=== PATIENT | male | born 1965 | race Caucasian/White ===

== ENCOUNTER 2024-08-15 06:15 | Day surgery (SDC) | payer OTHER, SELFPAY ==
[2024-08-15] VITALS (17 sets, daily range): BP systolic 105–167; BP diastolic 77–117; PULSE 71–99; RESP 14–20; TEMP 36.1–37.3; O2SAT 95–97; BMI 37.6
[2024-08-15] MEDS: LACTATED RINGERS 1000 ML 1,000 ML 100 ML IV ×2 (07:05→08:47)
[2024-08-15] MEDS: SODIUM CHLORIDE 0.9 % (FLUSH) 10 ML SYRINGE IVF (07:05)
[2024-08-15] MEDS: OXYCODONE (CR) 10 MG TAB.ER.12H PO (07:17)
[2024-08-15] MEDS: ACETAMINOPHEN 500 MG TABLET 1000 MG PO (07:17)
--- NOTE | 2024-08-15 07:17 | W.PM.H&PU ---
History & Physical Update History & Physical Update H&P Reviewed and patient assessed: No changes noted
[2024-08-15] MEDS: MIDAZOLAM HCL 1 MG/ML inj IVP (07:20)
[2024-08-15] MEDS: fentaNYL 100 MCG/2 ML inj IVP (07:20)
--- NOTE | 2024-08-15 07:29 | SUR.PREOP ---
TIME?OUT:?716, left knee PT/RN/MDA?VERIFICATION?OF?SURGICAL?SITE,?PROCEDURE,?AND?CONSENT OBTAINED?PRIOR?TO?INVASIVE?PROCEDURE.
[2024-08-15] MEDS: TRANEXAMIC ACID 100 MG/ML INJ 1000 MG IV (07:32)
--- NOTE | 2024-08-15 07:32 | P.NB_ITS ---
Nerve Block Nerve Block Time Seen by Provider: 07:20 Date Seen: 08/15/24 Type of block requested by surgeon for post-operative analgesia: adductor canal Side: left Time out performed: Yes Verification of patient name: Yes Verification of date of : Yes Site marking: site marked Name of person performing procedure: Prashant Continuous monitoring Was continuous monitoring of O2 sat, B/P, diagnostic cardiac sonographer, recorded every 15 minutes?: Yes Procedure Checklist: sterile prep, needles and gloves Ultrasound guided. Images saved: Yes Medications given in 5ml increments after negative aspiration: Marcaine %: 0.25 mL: 15 Needle gauge: 20 Precedex (mcg): 25 Patient tolerated procedure well: Yes Block Charges Block Charge (with Pro Fee): Femoral Nerve Use of Ultrasound Machine for Block: Yes- US Guidance/pain block
--- NOTE | 2024-08-15 07:32 | P.NB_ITS ---
Nerve Block Nerve Block Time Seen by Provider: 07:20 Date Seen: 08/15/24 Type of block requested by surgeon for post-operative analgesia: geniculars Side: left Time out performed: Yes Verification of patient name: Yes Verification of date of : Yes Site marking: site marked Name of person performing procedure: Prashant Continuous monitoring Was continuous monitoring of O2 sat, B/P, monitor car operator, recorded every 15 minutes?: Yes Procedure Checklist: sterile prep, needles and gloves Ultrasound guided. Images saved: Yes Medications given in 5ml increments after negative aspiration: Marcaine %: 0.25 mL: 9 Needle gauge: 25 Patient tolerated procedure well: Yes Block Charges Block Charge (with Pro Fee): Genicular Nerve Block
[2024-08-15] MEDS: CEFAZOLIN 2 GM in 0.9 % SODIUM CHLORIDE Mini-bag 100 ML IVPB (07:40)
--- NOTE | 2024-08-15 09:02 | PM.ORPRC ---
Procedure Note Date of procedure: 08/15/24 Procedure: PREOPERATIVE DIAGNOSIS: 1. Left knee osteoarthritis, primary, severe POSTOPERATIVE DIAGNOSIS: 1. Left knee osteoarthritis, primary, severe PROCEDURE: 1. Left total knee arthroplasty - 33% at a difficulty for this case due to his obesity secondary to the girth of the tissues, need for extra hands for assistance during the procedure, and increased time/difficulty with access and exposure during the case. 2. Obesity-BMI 37.7 (126 kg) SURGEON: Jose Corral MD. BRAKE OPERATOR HELPER: ETTA Varela - Of note, a skilled assistant restaurant general manager was critical for this case to aid in patient positioning, tissue retraction, limb manipulation/positioning, and closure. ANESTHESIA: Spinal anesthetic EBL: 50ml IMPLANTS: DePuy J&J uncemented TKA - Attune PS femur size 8 Size 7 RP (rotating platform) tibia 5 RP (rotating platform) poly spacer 41 mm Affixium patella TOURNIQUET: 90 min at 300 torr COMPLICATIONS: None evident INDICATIONS: The patient is a pleasant 58-year-old male who has experienced severe left knee pain and difficulty bearing weight. Workup included x-rays which revealed severe osteoarthrosis in the knee. Given the deformity, the dysfunction, and the pain, as well as the failure of nonoperative management, recommendation was made for surgery. FINDINGS: Full-thickness chondral loss diffusely throughout the medial compartment. To lesser degree patellofemoral and lateral compartments. Degenerative meniscus pathology medial greater than lateral. Moderate effusion upon entering the joint. Generalized synovitis noted throughout the knee. Of note, his obesity added difficulty for the case due to the girth of the tissues, need for extra hands for assistance during the procedure, and increased time/difficulty for the case. DESCRIPTION OF PROCEDURE: Following a thorough discussion of risks, benefits, and alternatives consent was obtained and the left knee was marked. The patient was brought to the operating room and placed supine on the operating table. Induction of anesthesia was undertaken. 3 g IV Ancef and 1 g tranexamic acid was administered within 1 hr of incision preoperatively. Proper time-out was performed identifying proper patient, site, procedure. The operative extremity was prepped and draped in the appropriate sterile fashion using ChloraPrep after the patient was positioned supine with all bony prominences well padded. A longitudinal, anterior, midline skin incision was made starting approximately 3cm proximal to the superior pole of the patella and advanced distal to the tibial tubercle. A sub vastus approach was utilized. After mobilizing the patella, retropatellar fatpad was resected and the synovium in the suprapatellar pouch excised to visualize the anterior femoral cortex. Patellar prep showed initial measurement/thickness of 28 mm. It was resected back to approximately 17 mm. The patella prep was completed with drilling and a trial placed. Femoral preparation was performed via an intramedullary guide. Step drill allowed access into the femoral canal. The distal cutting guide was placed with 5? of valgus and 11 mm cut on the distal femur. Femur was sized using a posterior referencing guide in 3? of external rotation. This found have a best fit with the sizing noted above. The 4 in 1 cutting block was then placed, and the distal femur shaped accordingly. The box cut was then created and the trial implant inserted to confirm appropriate fit. We turned our attention to the proximal tibia. Extramedullary guide was utilized for cutting with the goal of being 90 degree cut from the mechanical axis of the tibia in the varus/valgus plane utilizing tibial crest as the primary alignment. Initially a 3 mm resection was performed from the medial tibial plateau. An additional 2 mm of tibial resection was needed to achieve proper balance in both flexion & extension. Ultimately, balancing was achieved in both flexion and extension in both varus and valgus. The knee was able to achieve full extension comfortably. It was sized to be a best fit with as noted above. At this stage, trial implants were removed, the tibia and femoral and patellar components were opened and inserted. The real poly spacer was opened and inserted. A 3 min Betadine soak performed. Finally, a final irrigation round with normal saline was performed. Closure performed with 0 PDS and #0 Stratafix for the quad tendon/retinaculum. 2-0 Vicryl/Stratafix for the subcutaneous and 4-0 Monocryl for subcuticular closure. Dressings were applied and the patient was awoken from anesthesia after the tourniquet deflated and transferred the PACU in stable condition. A skilled assistant restaurant general manager was critical for this case to aid in patient positioning, tissue retraction, bone exposure, limb manipulation/positioning, patient safety, and closure. * Again, 33% added difficulty for this case for the above noted reasons. PLAN: 1. Weight bear as tolerated operative extremity. 2. 23 hr perioperative antibiotics. 3. Ice. 4. PT/OT consults for ambulation assistance/mobility education. 5. Social work consult for discharge planning. 6. DVT prophylaxis with at SCDs, and aspirin twice daily.
--- NOTE | 2024-08-15 09:27 | P.ANES_ITS ---
Anesthesia Charges Start Date/Time Anesthesia Start Date: 08/15/24 Anesthesia Start Time: 07:30 Stop Date/Time Anesthesia Stop Date: 08/15/24 Anesthesia Stop Time: 09:27 Coding CPT Codes CPT Codes: ANESTH KNEE ARTHROPLASTY - 73380 ([id number]) P2 - PATIENT W/MILD SYST DISEASE, QK - TABLEAU REPORT DEVELOPER 2-4 CNCRNT ANES PROC, QX - WATER QUALITY ANALYST SVC W/ MD MED DIRECTION
--- NOTE | 2024-08-15 09:27 | W.ANESCHARGE ---
Anesthesia Charges Start Date/Time Anesthesia Start Date: 08/15/24 Anesthesia Start Time: 07:30 Stop Date/Time Anesthesia Stop Date: 08/15/24 Anesthesia Stop Time: 09:27 Coding CPT Codes CPT Codes: ANESTH KNEE ARTHROPLASTY - 72231 ([id number]) P2 - PATIENT W/MILD SYST DISEASE, QK - HORSE RACE TIMER 2-4 CNCRNT ANES PROC, QX - AIRLINE PILOT FLIGHT INSTRUCTOR SVC W/ MD MED DIRECTION
--- NOTE | 2024-08-15 09:36 | CRLHL7_ITS ---
For Patients: As a result of the Cures Act, medical imaging exams and procedure reports are released immediately into your electronic medical record. You may view this report before your referring provider. If you have questions, please contact your health care provider. Indication: Postop. Technique: AP and lateral views of the left knee. Comparison: Left knee radiograph 06/21/2024 Findings: A 3 component left knee arthroplasty has been placed since the previous exam. Components appear well positioned and well seated. There are postoperative changes within the knee soft tissues. No other retained radiopaque metallic surgical foreign body is identified. Impression: Placement of left total knee arthroplasty. Dictated by Jose Alberto Bolton MD @ 08/15/2024 1:19:10 PM (Electronically Signed)
[2024-08-15] MEDS: IBUPROFEN 200 MG TABLET 400 MG PO (10:35)
--- NOTE | 2024-08-15 11:17 | P.ANES_ITS ---
Anesthesia Charges Start Date/Time Anesthesia Start Date: 08/15/24 Anesthesia Start Time: 07:30 Stop Date/Time Anesthesia Stop Date: 08/15/24 Anesthesia Stop Time: 09:27 Coding CPT Codes CPT Codes: ANESTH KNEE ARTHROPLASTY - 67887 ([id number]) QK - FARM DEMONSTRATOR 2-4 CNCRNT ANES PROC, P2 - PATIENT W/MILD SYST DISEASE, QX - HIGH SCHOOL FOOTBALL COACH SVC W/ MD MED DIRECTION
--- NOTE | 2024-08-15 11:17 | W.ANESCHARGE ---
Anesthesia Charges Start Date/Time Anesthesia Start Date: 08/15/24 Anesthesia Start Time: 07:30 Stop Date/Time Anesthesia Stop Date: 08/15/24 Anesthesia Stop Time: 09:27 Coding CPT Codes CPT Codes: ANESTH KNEE ARTHROPLASTY - 30603 ([id number]) QK - TELEPHONE EXCHANGE OPERATOR 2-4 CNCRNT ANES PROC, P2 - PATIENT W/MILD SYST DISEASE, QX - NEON SIGN ERECTOR SVC W/ MD MED DIRECTION
== END 2024-08-15 13:43 | disposition home or self-care (01) ==
LOC: OR 06:17
PROVIDERS: Visit Provider Orthopaedic Surgery Sports Medicine
PROC: (CPT 27447; principal; 2024-08-15 07:30)
DX: M17.12 Unilateral primary osteoarthritis, left knee (principal); S83.232A Complex tear of medial meniscus, current injury, left knee, initial encounter; G89.18 Other acute postprocedural pain; R73.03 Prediabetes; E66.09 Other obesity due to excess calories; Z68.38 Body mass index [BMI] 38.0-38.9, adult; G47.30 Sleep apnea, unspecified; I10 Essential (primary) hypertension; K21.9 Gastro-esophageal reflux disease without esophagitis
CPT/HCPCS: 27447; 01402; 64447; 64454; 73560; 76942; 97110; 97161; 97530; A9270; C1776; J0665; J0690; J1100; J2250; J2405; J2704; J3010; J3490; J7120

== ENCOUNTER 2025-03-06 06:03 | Day surgery (SDC) | payer OTHER, SELFPAY ==
[2025-03-06] VITALS (17 sets, daily range): BP systolic 97–171; BP diastolic 59–101; PULSE 66–98; RESP 12–20; TEMP 36.1–37.1; O2SAT 94–97; BMI 37.0
[2025-03-06] MEDS: ACETAMINOPHEN 500 MG TABLET 1000 MG PO (06:30)
[2025-03-06] MEDS: OXYCODONE (CR) 10 MG TAB.ER.12H PO (06:30)
[2025-03-06] MEDS: LACTATED RINGERS 500 ML 500 ML 30 ML IV (06:45)
[2025-03-06] MEDS: SODIUM CHLORIDE 0.9 % (FLUSH) 10 ML SYRINGE IVF (06:45)
--- NOTE | 2025-03-06 06:57 | W.PM.H&PU ---
History & Physical Update History & Physical Update H&P Reviewed and patient assessed: No changes noted
[2025-03-06] MEDS: MIDAZOLAM HCL 1 MG/ML inj IVP (07:02)
--- NOTE | 2025-03-06 07:18 | SUR.PREOP ---
TIME?OUT:?0702 PT/RN/MDA?VERIFICATION?OF?SURGICAL?SITE,?PROCEDURE,?AND?CONSENT OBTAINED?PRIOR?TO?INVASIVE?PROCEDURE.
[2025-03-06] MEDS: TRANEXAMIC ACID 100 MG/ML INJ 1000 MG IV (07:31)
[2025-03-06] MEDS: LACTATED RINGERS 1000 ML 1,000 ML 100 ML IV (08:15)
--- NOTE | 2025-03-06 08:16 | W.PM.NB ---
Nerve Block Nerve Block Time Seen by Provider: 07:05 Date Seen: 03/06/25 Type of block requested by surgeon for post-operative analgesia: adductor canal Side: right Time out performed: Yes Verification of patient name: Yes Verification of date of : Yes Site marking: site marked Name of person performing procedure: Prashant Continuous monitoring Was continuous monitoring of O2 sat, B/P, alarm security or surveillance monitor, recorded every 15 minutes?: Yes Procedure Checklist: sterile prep, needles and gloves Ultrasound guided. Images saved: Yes Medications given in 5ml increments after negative aspiration: Marcaine %: 0.25 mL: 15 Needle gauge: 20 Precedex (mcg): 25 Patient tolerated procedure well: Yes Block Charges Block Charge (with Pro Fee): Femoral Nerve Use of Ultrasound Machine for Block: Yes- US Guidance/pain block
--- NOTE | 2025-03-06 08:16 | W.PM.NB ---
Nerve Block Nerve Block Time Seen by Provider: 07:05 Date Seen: 03/06/25 Type of block requested by surgeon for post-operative analgesia: geniculars Side: right Time out performed: Yes Verification of patient name: Yes Verification of date of : Yes Site marking: site marked Name of person performing procedure: Prashant Continuous monitoring Was continuous monitoring of O2 sat, B/P, front desk monitor, recorded every 15 minutes?: Yes Procedure Checklist: sterile prep, needles and gloves Ultrasound guided. Images saved: Yes Medications given in 5ml increments after negative aspiration: Marcaine %: 0.25 mL: 9 Needle gauge: 25 Patient tolerated procedure well: Yes Block Charges Block Charge (with Pro Fee): Genicular Nerve Block
--- NOTE | 2025-03-06 08:17 | P.ANES_ITS ---
Anesthesia Charges Start Date/Time Anesthesia Start Date: 03/06/25 Anesthesia Start Time: 07:15 Stop Date/Time Anesthesia Stop Date: 03/06/25 Anesthesia Stop Time: 09:18 Coding CPT Codes CPT Codes: ANESTH KNEE ARTHROPLASTY - 98232 ([id number]) P2 - PATIENT W/MILD SYST DISEASE, QK - PRINTER ASSISTANT 2-4 CNCRNT ANES PROC, QX - RIGHT OF WAY MAINTENANCE SUPERVISOR SVC W/ MD MED DIRECTION
--- NOTE | 2025-03-06 08:17 | W.ANESCHARGE ---
Anesthesia Charges Start Date/Time Anesthesia Start Date: 03/06/25 Anesthesia Start Time: 07:15 Stop Date/Time Anesthesia Stop Date: 03/06/25 Anesthesia Stop Time: 09:18 Coding CPT Codes CPT Codes: ANESTH KNEE ARTHROPLASTY - 15715 ([id number]) P2 - PATIENT W/MILD SYST DISEASE, QK - INCREMENT MANAGER 2-4 CNCRNT ANES PROC, QX - FACTORY MANAGER SVC W/ MD MED DIRECTION
--- NOTE | 2025-03-06 08:52 | PM.ORPRC ---
Procedure Note Date of procedure: 03/06/25 Procedure: PREOPERATIVE DIAGNOSIS: 1. Right knee osteoarthritis, primary, severe POSTOPERATIVE DIAGNOSIS: 1. Right knee osteoarthritis, primary, severe PROCEDURE: 1. Right total knee arthroplasty, Press-Fit, Rotating Platform - No tourniquet - 33% added difficulty for this case due to patient's body mass (BMI 37.1; 124 kg). This required increased length of surgical time, increased number of assistants, and increased number of retractors to perform the procedure. SURGEON: Jose Corral MD. CASHIER CLERK: ETTA Varela - Of note, a skilled nursing home assistant administrator was critical for this case to aid in patient positioning, tissue retraction, limb manipulation/positioning, and closure. ANESTHESIA: Spinal anesthetic EBL: 100ml IMPLANTS: DePuy J&J uncemented TKA - Attune PS pressfit femur size 8 Size 7 pressfit tibia Rotating Platform 5 mm mm RP poly spacer 38 mm Affixium patella TOURNIQUET: None COMPLICATIONS: None evident INDICATIONS: The patient is a pleasant 59-year-old male who has experienced severe right knee pain and difficulty bearing weight. Workup included x-rays which revealed severe osteoarthrosis in the knee. Given the deformity, the dysfunction, and the pain, as well as the failure of nonoperative management, recommendation was made for surgery. FINDINGS: Full-thickness chondral loss diffusely throughout the medial compartment with very dense hard bone on both the medial femur and medial tibial plateau. Significant chondromalacia lateral and patellofemoral compartments as well. A small effusion upon entering the joint. Degenerative meniscus pathology medial greater than lateral. DESCRIPTION OF PROCEDURE: Following a thorough discussion of risks, benefits, and alternatives consent was obtained and the right knee was marked. The patient was brought to the operating room and placed supine on the operating table. Induction of anesthesia was undertaken. 3 g IV Ancef and 1 g tranexamic acid was administered within 1 hr of incision preoperatively. Proper time-out was performed identifying proper patient, site, procedure. The operative extremity was prepped and draped in the appropriate sterile fashion using ChloraPrep after the patient was positioned supine with all bony prominences well padded. A longitudinal, anterior, midline skin incision was made starting approximately 3cm proximal to the superior pole of the patella and advanced distal to the tibial tubercle. A sub vastus approach was utilized. After mobilizing the patella, the retropatellar fatpad was resected and the synovium in the suprapatellar pouch excised to visualize the anterior femoral cortex. Patellar prep showed initial measurement/thickness of 25 mm. It was resected back to approximately 14.5 mm. The patella prep was completed with drilling and a trial placed followed by a protector plate until final component implantation. Femoral preparation was performed via an intramedullary guide. Step drill allowed access into the femoral canal. The distal cutting guide was placed with 5? of valgus and 11 mm cut on the distal femur due to a 5-7 degree flexion contracture. Femur was sized using a posterior referencing guide in 3? of external rotation. This was found to have a best fit with the sizing noted above. The 4 in 1 cutting block was then placed, and the distal femur shaped accordingly. The box cut was then completed. We turned our attention to the proximal tibia. Extramedullary guide was utilized for cutting with the goal of being 90 degree cut from the mechanical axis of the tibia in the varus/valgus plane utilizing tibial crest as the primary alignment. Initially a 2 mm resection was performed from the medial tibial plateau. An additional 2 mm of tibial resection was needed to achieve proper balance in both flexion & extension. Ultimately, balancing was achieved in both flexion and extension in both varus and valgus. The knee was able to achieve full extension comfortably. It was sized to be a best fit with as noted above. At this stage, trial implants were removed, the tibia and femoral and patellar components were opened and inserted. The real poly spacer was opened and inserted. A 3 min Betadine soak performed. Finally, a final irrigation round with normal saline was performed. Closure performed with 0 PDS and #0 Stratafix for the quad tendon/retinaculum. 2-0 Vicryl/Stratafix for the subcutaneous and 4-0 Monocryl for subcuticular closure. Dressings were applied and the patient was awoken from anesthesia and transferred the PACU in stable condition. A skilled nursing home assistant administrator was critical for this case to aid in patient positioning, tissue retraction, bone exposure, limb manipulation/positioning, patient safety, and closure. Again, 33% added difficulty for this case due to patient's body mass (BMI 37.1; 124 kg) requiring increased length of surgical time, increased number of assistants, and increased number of retractors to perform the procedure. PLAN: 1. Weight bear as tolerated operative extremity. 2. 23 hr perioperative antibiotics. 3. Ice. 4. PT/OT consults for ambulation assistance/mobility education. 5. Social work consult for discharge planning. 6. DVT prophylaxis with at SCDs, and aspirin twice daily.
--- NOTE | 2025-03-06 09:14 | CRLHL7_ITS ---
For Patients: As a result of the Cures Act, medical imaging exams and procedure reports are released immediately into your electronic medical record. You may view this report before your referring provider. If you have questions, please contact your health care provider. Indication: TKA post op Technique: Two views right knee Findings/Impression: Hardware from a right total knee arthroplasty is in satisfactory position. Bone alignment is normal. No sign of acute fracture. Postop changes are within normal limits. Dictated by Ulisses Painter MD @ 03/06/2025 10:55:58 AM (Electronically Signed)
--- NOTE | 2025-03-06 09:19 | P.ANES_ITS ---
Anesthesia Charges Start Date/Time Anesthesia Start Date: 03/06/25 Anesthesia Start Time: 07:15 Stop Date/Time Anesthesia Stop Date: 03/06/25 Anesthesia Stop Time: 09:18 Coding CPT Codes CPT Codes: ANESTH KNEE ARTHROPLASTY - 65219 ([id number]) P2 - PATIENT W/MILD SYST DISEASE, QK - SAND AND GRAVEL PLANT OPERATOR 2-4 CNCRNT ANES PROC, QX - SOCIAL SCIENCES DEPARTMENT CHAIR SVC W/ MD MED DIRECTION
--- NOTE | 2025-03-06 09:19 | W.ANESCHARGE ---
Anesthesia Charges Start Date/Time Anesthesia Start Date: 03/06/25 Anesthesia Start Time: 07:15 Stop Date/Time Anesthesia Stop Date: 03/06/25 Anesthesia Stop Time: 09:18 Coding CPT Codes CPT Codes: ANESTH KNEE ARTHROPLASTY - 39275 ([id number]) P2 - PATIENT W/MILD SYST DISEASE, QK - LONG TERM CARE ADMINISTRATOR 2-4 CNCRNT ANES PROC, QX - BENEFITS SALES CONSULTANT SVC W/ MD MED DIRECTION
[2025-03-06] MEDS: LACTATED RINGERS 500 ML 500 ML 100 ML IV (09:24)
[2025-03-06] MEDS: IBUPROFEN 200 MG TABLET 600 MG PO (12:31)
== END 2025-03-06 14:18 | disposition home or self-care (01) ==
LOC: OR 06:03
PROVIDERS: Visit Provider Orthopaedic Surgery Sports Medicine
PROC: (CPT 27447; principal; 2025-03-06 07:15)
DX: M17.11 Unilateral primary osteoarthritis, right knee (principal); G89.18 Other acute postprocedural pain; E66.812 Obesity, class 2; Z68.38 Body mass index [BMI] 38.0-38.9, adult
CPT/HCPCS: 27447; 01402; 64447; 64454; 73560; 76942; 97110; 97116; 97161; A9270; C1776; J0665; J0690; J1100; J2250; J2371; J2405; J2704; J3010; J7120